=== PATIENT | male | born 1960 | race Caucasian/White ===

== ENCOUNTER 2021-02-13 11:47 | Inpatient (IN) | payer MEDICAID ==
[~2021-02-13] VITALS: Ht 185.4 cm; Wt 53.1 kg
[2021-02-13] MEDS ORDERED: InsuLIN REG 1unit/0.01ml Soln (100units/ml) IV ONE ×2 (12:00→14:45)
[2021-02-13] MEDS ORDERED: SODIUM CHLORIDE 0.9% 1,000 ML IV ONE ×3 (12:00→16:15)
[2021-02-13] MEDS ORDERED: cloNIDine HCL 0.1 MG TAB PO ONE (12:15)
[2021-02-13] MEDS ORDERED: ONDANSETRON HCL 4 MG/2 ML VIAL IV ONE (12:45)
[2021-02-13] MEDS ORDERED: MORPHINE SULFATE 4 MG/ML SYR/VIAL IV ONE (12:45)
[2021-02-13] MEDS ORDERED: LORazepam 2MG/ML-1ML VIAL ONE (13:10)
[2021-02-13] MEDS ORDERED: LORazepam 2MG/ML-1ML VIAL IV ONE (13:15)
[2021-02-13 13:31] LABS: Alanine Aminotransferase 253 U/L (16-61); Albumin 3.7 g/dL (3.4-5.0); Anion Gap 16 (5-15); Blood Urea Nitrogen 9 mg/dL (7-18); Calcium 8.8 mg/dL (8.5-10.1); Carbon Dioxide 25 mmol/L (21-32); Chloride 95 mmol/L (98-107); Lipase 253 U/L (73-393); Magnesium 2.1 mg/dL (1.6-2.6); Sodium 136 mmol/L (136-145)
[2021-02-13 13:36] LABS: Alkaline Phosphatase 134 U/L (45-117); Aspartate Aminotransferase 193 U/L (15-37); BUN/Creatinine Ratio 11.4; Bilirubin, Total 0.7 mg/dL (0.2-1.0); GFR African American 128 mL/min; GFR Non-African American 106 mL/min; Total Protein 7.6 g/dL (6.4-8.2)
[2021-02-13 13:38] LABS: Basophils # (auto) 0.1 10 ^3/uL (0-0.2); Basophils % (auto) 1.4 % (0.0-2.0); Eosinophils # (auto) 0.1 10 ^3/uL (0-0.8); Hematocrit 43.7 % (41.0-53.0); Hemoglobin 15.4 g/dL (13.5-17.5); Lymphocytes # (auto) 2.6 10 ^3/uL (0.4-5.4); Lymphocytes % (auto) 43.8 % (10.0-50.0); Mean Corpuscular Hemoglobin 31.2 pg (28.0-32.0); Mean Corpuscular Hgb Conc. 35.3 g/dL (32.0-36.0); Mean Corpuscular Volume 88.4 fL (80.0-100.0); Monocytes # (auto) 0.5 10 ^3/uL (0-1.3); Monocytes % (auto) 7.8 % (0.0-12.0); Neutrophils # (auto) 2.7 10 ^3/uL (1.6-8.6); Nucleated Red Blood Cells % 0.2 %; Platelet Count (auto) 231 10^3/uL (140-450); Red Blood Cells 4.94 10^6/uL (4.5-5.90); Red Cell Distribution Width 13.2 % (11.8-14.3); White Blood Cell 5.9 10^3/uL (4.4-10.8)
[2021-02-13 13:46] LABS: Glucose 422 mg/dL (74-106)
[2021-02-13] MEDS ORDERED: DEXTROSE (50%) 50ML SYRG IV PRN (16:00)
[2021-02-13] MEDS ORDERED: LORazepam 0.5 MG TAB PO PRN (16:00)
[2021-02-13] MEDS ORDERED: ONDANSETRON HCL 4 MG/2 ML VIAL IV PRN (16:00)
[2021-02-13] MEDS ORDERED: LOSARTAN POTASSIUM 50 MG TAB PO ONE (16:00)
[2021-02-13] MEDS ORDERED: MORPHINE SULF INJ 2 MG/ML SYRINGE 1ML IV PRN ×2 (16:00→22:15)
[2021-02-13] MEDS ORDERED: NITROGLYCERIN 0.4 MG SL TAB SL PRN (16:00)
[2021-02-13] MEDS ORDERED: DOCUSATE CALCIUM 240 MG CAP PO PRN (16:00)
[2021-02-13] MEDS ORDERED: ACETAMINOPHEN 325 MG TAB PO PRN (16:00)
[2021-02-13] MEDS ORDERED: IOHEXOL 300 MG/ML 100ML BOTTLE IJ ONE (16:13)
[2021-02-13] MEDS: ACCU-CHEK COMFORT CURVE STRIP VI SCH ×2 (16:46→20:00)
[2021-02-13] MEDS: InsuLIN REG 1unit/0.01ml Soln (100units/ml) SC SCH ×2 (16:47→21:10)
[2021-02-13 16:53] LABS: INR 1.07 (0.9-1.15); Partial Thromboplastin Time 24.7 sec (23.0-31.2)
[2021-02-13 17:20] LABS: Urine Bacteria FEW /hpf (None Seen); Urine Blood Negative /uL (Negative); Urine Specific Gravity 1.028 (1.001-1.035); Urine WBC 1 /hpf (0 - 3)
[2021-02-13] MEDS: SUCRALFATE 1 GM/10 ML ORAL SUSP PO SCH ×2 (18:19→21:14)
[2021-02-13] MEDS: SODIUM CHLORIDE 0.9% 1,000 ML IV SCH (18:54)
[2021-02-13] MEDS: INSULIN LANTUS (GLARGINE) 1 /0.01ml (100units/ml) SC SCH (21:10)
[2021-02-13] MEDS: GABAPENTIN 100 MG CAP PO SCH (21:14)
[2021-02-13] MEDS: PANTOPRAZOLE 40 MG TAB PO SCH (21:14)
[2021-02-13] MEDS: CLINDAMYCIN 300MG IV 50 ML IV SCH (21:25)
[2021-02-13 21:40] VITALS: BP 146/86
[2021-02-14] MEDS: SODIUM CHLORIDE 0.9% 1,000 ML IV SCH ×3 (00:15→16:15)
[2021-02-14] MEDS: InsuLIN REG 1unit/0.01ml Soln (100units/ml) SC SCH ×6 (00:55→20:39)
[2021-02-14] MEDS: MORPHINE SULF INJ 2 MG/ML SYRINGE 1ML IV PRN ×2 (02:54→07:07)
[2021-02-14] MEDS: ACCU-CHEK COMFORT CURVE STRIP VI SCH ×6 (04:00→20:00)
[2021-02-14 05:00] VITALS: BP 165/95
[2021-02-14] MEDS: CLINDAMYCIN 300MG IV 50 ML IV SCH ×3 (06:23→21:41)
[2021-02-14] MEDS: SUCRALFATE 1 GM/10 ML ORAL SUSP PO SCH ×4 (06:24→21:42)
[2021-02-14] MEDS ORDERED: HYDR-4902 PO (06:57)
[2021-02-14 07:51] LABS: Basophils # (auto) 0 10 ^3/uL (0-0.2); Eosinophils # (auto) 0 10 ^3/uL (0-0.8); Eosinophils % (auto) 0.7 % (0.0-7.0); Hematocrit 40.8 % (41.0-53.0); Hemoglobin 14.5 g/dL (13.5-17.5); Lymphocytes # (auto) 1.1 10 ^3/uL (0.4-5.4); Lymphocytes % (auto) 23.9 % (10.0-50.0); Mean Corpuscular Hemoglobin 31.3 pg (28.0-32.0); Mean Corpuscular Hgb Conc. 35.4 g/dL (32.0-36.0); Mean Corpuscular Volume 88.4 fL (80.0-100.0); Monocytes # (auto) 0.4 10 ^3/uL (0-1.3); Monocytes % (auto) 7.5 % (0.0-12.0); Neutrophils # (auto) 3.2 10 ^3/uL (1.6-8.6); Neutrophils % (auto) 66.9 % (37.0-80.0); Nucleated Red Blood Cells % 0.1 %; Platelet Count (auto) 149 10^3/uL (140-450); Red Blood Cells 4.62 10^6/uL (4.5-5.90); Red Cell Distribution Width 13.1 % (11.8-14.3); White Blood Cell 4.8 10^3/uL (4.4-10.8)
[2021-02-14 08:12] VITALS: BP 166/87
[2021-02-14 08:14] LABS: Calcium 8.2 mg/dL (8.5-10.1); Potassium 3.5 mmol/L (3.5-5.1)
[2021-02-14 08:20] LABS: Bilirubin, Total 0.6 mg/dL (0.2-1.0); Total Protein 6.2 g/dL (6.4-8.2)
[2021-02-14 08:28] LABS: INR 1.06 (0.9-1.15)
[2021-02-14] MEDS: PANTOPRAZOLE 40 MG TAB PO SCH ×2 (09:43→21:42)
[2021-02-14] MEDS: GABAPENTIN 100 MG CAP PO SCH ×2 (09:43→21:42)
[2021-02-14] MEDS: ENOXAPARIN SOD 40 MG/0.4 ML SYRINGE SC SCH (09:43)
[2021-02-14] MEDS: LABETALOL HCL 5 MG/ML 4ML SYRINGE IV PRN (09:44)
[2021-02-14] MEDS ORDERED: PANTOPRAZOLE 40 MG TAB PO SCH ×2 (10:00)
[2021-02-14] MEDS: HYDROmorphone HCL 2 MG/ML VL IV PRN ×3 (11:24→20:23)
[2021-02-14 12:30] VITALS: BP 138/79
[2021-02-14] MEDS ORDERED: chlordiazePOXIDE HCL 25 MG CAP PO PRN (15:30)
[2021-02-14 16:51] VITALS: BP 153/84
[2021-02-14] MEDS: Glucerna Carbsteady SHAKE Vanilla 8oz PO SCH (17:21)
[2021-02-14] MEDS: CEPHALEXIN 250 MG CAP PO SCH (17:21)
[2021-02-14] MEDS: FOLIC ACID 1 MG, MULTIPLE VITAMIN 10 ML, MAGNESIUM SULF SDV 50% 8 MEQ, THIAMINE INJ 100... INJ SCH ×5 (17:22)
[2021-02-14 21:42] VITALS: BP 131/72
[2021-02-14] MEDS: INSULIN LANTUS (GLARGINE) 1 /0.01ml (100units/ml) SC SCH (21:57)
[2021-02-15] MEDS: CEPHALEXIN 250 MG CAP PO SCH ×4 (00:24→17:16)
[2021-02-15] MEDS: ACCU-CHEK COMFORT CURVE STRIP VI SCH ×6 (00:24→20:13)
[2021-02-15] MEDS: SODIUM CHLORIDE 0.9% 1,000 ML IV SCH ×3 (00:25→16:02)
[2021-02-15] MEDS: HYDROmorphone HCL 2 MG/ML VL IV PRN ×6 (02:09→21:30)
[2021-02-15] MEDS: InsuLIN REG 1unit/0.01ml Soln (100units/ml) SC SCH ×7 (04:21→23:58)
[2021-02-15] MEDS: LABETALOL HCL 5 MG/ML 4ML SYRINGE IV PRN (04:22)
[2021-02-15 05:30] VITALS: BP 152/74
[2021-02-15 05:43] LABS: Basophils # (auto) 0 10 ^3/uL (0-0.2); Basophils % (auto) 0.9 % (0.0-2.0); Eosinophils # (auto) 0 10 ^3/uL (0-0.8); Eosinophils % (auto) 1.5 % (0.0-7.0); Hematocrit 39.6 % (41.0-53.0); Hemoglobin 13.8 g/dL (13.5-17.5); Lymphocytes # (auto) 0.7 10 ^3/uL (0.4-5.4); Lymphocytes % (auto) 23.6 % (10.0-50.0); Mean Corpuscular Hemoglobin 31.2 pg (28.0-32.0); Mean Corpuscular Hgb Conc. 34.9 g/dL (32.0-36.0); Mean Corpuscular Volume 89.5 fL (80.0-100.0); Monocytes # (auto) 0.2 10 ^3/uL (0-1.3); Monocytes % (auto) 7.9 % (0.0-12.0); Neutrophils % (auto) 66.1 % (37.0-80.0); Nucleated Red Blood Cells % 0.3 %; Platelet Count (auto) 108 10^3/uL (140-450); Red Blood Cells 4.42 10^6/uL (4.5-5.90); White Blood Cell 3.1 10^3/uL (4.4-10.8)
[2021-02-15 06:04] LABS: Albumin 3.1 g/dL (3.4-5.0); BUN/Creatinine Ratio 26.2; Calcium 8.1 mg/dL (8.5-10.1); INR 1.07 (0.9-1.15); Potassium 4.2 mmol/L (3.5-5.1)
[2021-02-15 06:07] LABS: Bilirubin, Total 0.7 mg/dL (0.2-1.0); Total Protein 6.1 g/dL (6.4-8.2)
[2021-02-15] MEDS: SUCRALFATE 1 GM/10 ML ORAL SUSP PO SCH ×4 (06:11→21:28)
[2021-02-15] MEDS: CLINDAMYCIN 300MG IV 50 ML IV SCH ×3 (06:11→21:28)
[2021-02-15] MEDS: Glucerna Carbsteady SHAKE Vanilla 8oz PO SCH ×3 (08:38→17:48)
[2021-02-15 09:00] VITALS: BP 141/79
[2021-02-15] MEDS: ENOXAPARIN SOD 40 MG/0.4 ML SYRINGE SC SCH (10:08)
[2021-02-15] MEDS: PANTOPRAZOLE 40 MG TAB PO SCH ×2 (10:08→21:29)
[2021-02-15] MEDS: GABAPENTIN 100 MG CAP PO SCH ×2 (10:08→21:29)
[2021-02-15 13:00] VITALS: BP 148/82
[2021-02-15 17:00] VITALS: BP 147/93
[2021-02-15] MEDS: FOLIC ACID 1 MG, MULTIPLE VITAMIN 10 ML, MAGNESIUM SULF SDV 50% 8 MEQ, THIAMINE INJ 100... INJ SCH ×5 (17:44)
[2021-02-15 21:31] VITALS: BP 130/74
[2021-02-15] MEDS: INSULIN LANTUS (GLARGINE) 1 /0.01ml (100units/ml) SC SCH (22:38)
[2021-02-16] MEDS: CEPHALEXIN 250 MG CAP PO SCH ×3 (00:02→12:12)
[2021-02-16] MEDS: ACCU-CHEK COMFORT CURVE STRIP VI SCH ×6 (00:12→21:02)
[2021-02-16] MEDS: SODIUM CHLORIDE 0.9% 1,000 ML IV SCH ×3 (00:15→15:35)
[2021-02-16] MEDS: HYDROmorphone HCL 2 MG/ML VL IV PRN ×7 (01:22→21:42)
[2021-02-16] MEDS: InsuLIN REG 1unit/0.01ml Soln (100units/ml) SC SCH ×5 (04:29→21:09)
[2021-02-16] MEDS: LABETALOL HCL 5 MG/ML 4ML SYRINGE IV PRN (04:30)
[2021-02-16 05:24] VITALS: BP 158/95
[2021-02-16] MEDS: CLINDAMYCIN 300MG IV 50 ML IV SCH ×2 (06:03→13:39)
[2021-02-16] MEDS: SUCRALFATE 1 GM/10 ML ORAL SUSP PO SCH ×4 (07:00→21:02)
[2021-02-16 08:01] VITALS: BP 131/95
[2021-02-16 08:06] VITALS: BP 131/71
[2021-02-16 08:24] LABS: Basophils # (auto) 0 10 ^3/uL (0-0.2); Basophils % (auto) 0.4 % (0.0-2.0); Eosinophils # (auto) 0.1 10 ^3/uL (0-0.8); Eosinophils % (auto) 2.2 % (0.0-7.0); Hematocrit 36.7 % (41.0-53.0); Hemoglobin 12.9 g/dL (13.5-17.5); Lymphocytes # (auto) 0.9 10 ^3/uL (0.4-5.4); Lymphocytes % (auto) 28.1 % (10.0-50.0); Mean Corpuscular Hemoglobin 31.7 pg (28.0-32.0); Mean Corpuscular Hgb Conc. 35.2 g/dL (32.0-36.0); Mean Corpuscular Volume 90.1 fL (80.0-100.0); Monocytes # (auto) 0.3 10 ^3/uL (0-1.3); Monocytes % (auto) 8.5 % (0.0-12.0); Neutrophils # (auto) 1.9 10 ^3/uL (1.6-8.6); Neutrophils % (auto) 60.8 % (37.0-80.0); Nucleated Red Blood Cells % 0.2 %; Platelet Count (auto) 98 10^3/uL (140-450); Red Blood Cells 4.08 10^6/uL (4.5-5.90); Red Cell Distribution Width 12.9 % (11.8-14.3); White Blood Cell 3.2 10^3/uL (4.4-10.8)
[2021-02-16 08:49] LABS: Potassium 4.2 mmol/L (3.5-5.1)
[2021-02-16] MEDS: Glucerna Carbsteady SHAKE Vanilla 8oz PO SCH ×3 (08:53→18:36)
[2021-02-16] MEDS: ENOXAPARIN SOD 40 MG/0.4 ML SYRINGE SC SCH (08:54)
[2021-02-16] MEDS: GABAPENTIN 100 MG CAP PO SCH ×2 (08:54→21:03)
[2021-02-16] MEDS: PANTOPRAZOLE 40 MG TAB PO SCH ×2 (08:54→21:03)
[2021-02-16 08:58] LABS: Albumin 2.8 g/dL (3.4-5.0); BUN/Creatinine Ratio 30.5; Bilirubin, Total 0.6 mg/dL (0.2-1.0); Total Protein 5.5 g/dL (6.4-8.2)
[2021-02-16 12:02] LABS: Hepatitis B Surface Antibody Negative
[2021-02-16 12:29] LABS: Hepatitis A Total Antibody Negative
[2021-02-16 12:30] VITALS: BP 134/73
[2021-02-16 15:00] LABS: Hepatitis B Core Total AB Negative; Hepatitis B Surface Antigen Negative (Negative)
[2021-02-16 15:14] LABS: Hepatitis C Antibody Positive (Negative)
[2021-02-16 16:54] VITALS: BP 140/74
[2021-02-16] MEDS: FOLIC ACID 1 MG, MULTIPLE VITAMIN 10 ML, MAGNESIUM SULF SDV 50% 8 MEQ, THIAMINE INJ 100... INJ SCH ×5 (18:36)
[2021-02-16] MEDS: CLINDAMYCIN HCL 150 MG CAP PO SCH (21:03)
[2021-02-16 22:00] VITALS: BP 162/93
[2021-02-16] MEDS ORDERED: INSULIN LANTUS (GLARGINE) 1 /0.01ml (100units/ml) SC SCH (22:00)
[2021-02-17] MEDS: SODIUM CHLORIDE 0.9% 1,000 ML IV SCH ×2 (00:15→08:15)
[2021-02-17] MEDS: InsuLIN REG 1unit/0.01ml Soln (100units/ml) SC SCH ×3 (01:01→08:25)
[2021-02-17] MEDS: ACCU-CHEK COMFORT CURVE STRIP VI SCH ×3 (01:02→08:22)
[2021-02-17] MEDS: HYDROmorphone HCL 2 MG/ML VL IV PRN ×3 (01:03→08:27)
[2021-02-17 05:00] VITALS: BP 166/98
[2021-02-17] MEDS: CLINDAMYCIN HCL 150 MG CAP PO SCH (06:00)
[2021-02-17] MEDS: SUCRALFATE 1 GM/10 ML ORAL SUSP PO SCH (06:02)
[2021-02-17 06:43] LABS: Basophils # (auto) 0 10 ^3/uL (0-0.2); Basophils % (auto) 0.7 % (0.0-2.0); Eosinophils # (auto) 0.1 10 ^3/uL (0-0.8); Hematocrit 41.6 % (41.0-53.0); Hemoglobin 14.8 g/dL (13.5-17.5); Lymphocytes # (auto) 0.9 10 ^3/uL (0.4-5.4); Lymphocytes % (auto) 23.9 % (10.0-50.0); Mean Corpuscular Hemoglobin 32.4 pg (28.0-32.0); Mean Corpuscular Hgb Conc. 35.5 g/dL (32.0-36.0); Mean Corpuscular Volume 91.4 fL (80.0-100.0); Monocytes # (auto) 0.3 10 ^3/uL (0-1.3); Monocytes % (auto) 8.9 % (0.0-12.0); Neutrophils # (auto) 2.3 10 ^3/uL (1.6-8.6); Neutrophils % (auto) 64.5 % (37.0-80.0); Nucleated Red Blood Cells % 0.9 %; Platelet Count (auto) 109 10^3/uL (140-450); Red Blood Cells 4.55 10^6/uL (4.5-5.90); Red Cell Distribution Width 13.1 % (11.8-14.3); White Blood Cell 3.6 10^3/uL (4.4-10.8)
[2021-02-17 06:54] LABS: INR 0.97 (0.9-1.15)
[2021-02-17 07:02] LABS: Calcium 8.5 mg/dL (8.5-10.1)
[2021-02-17] MEDS: Glucerna Carbsteady SHAKE Vanilla 8oz PO SCH (08:26)
[2021-02-17 09:00] VITALS: BP 152/81
== END 2021-02-17 10:00 | disposition left against medical advice (07) | DRG 420 ==
LOC: ER 11:47 → EDBD 11:47 → TELE-WESTW 15:53 → UNDOADMIN 15:53 → OVERFLOW 15:53 → TELE-WESTW 02-15 22:34
PROVIDERS: ADMIT Family Medicine; ATTEND Internal Medicine
DX: E11.00 Type 2 diabetes mellitus with hyperosmolarity without nonketotic hyperglycemic-hyperosmolar coma (NKHHC) (principal); F10.221 Alcohol dependence with intoxication delirium; E44.0 Moderate protein-calorie malnutrition; R65.10 Systemic inflammatory response syndrome (SIRS) of non-infectious origin without acute organ dysfunction; E11.40 Type 2 diabetes mellitus with diabetic neuropathy, unspecified; K70.30 Alcoholic cirrhosis of liver without ascites; E11.622 Type 2 diabetes mellitus with other skin ulcer; I16.0 Hypertensive urgency; I10 Essential (primary) hypertension; G89.29 Other chronic pain; K59.00 Constipation, unspecified; Z51.5 Encounter for palliative care; F10.239 Alcohol dependence with withdrawal, unspecified; Z20.822 Contact with and (suspected) exposure to COVID-19; I87.8 Other specified disorders of veins; Z91.14 Patient's other noncompliance with medication regimen; Z97.0 Presence of artificial eye; Y90.6 Blood alcohol level of 120-199 mg/100 ml; Z53.29 Procedure and treatment not carried out because of patient's decision for other reasons; I83.029 Varicose veins of left lower extremity with ulcer of unspecified site; E11.65 Type 2 diabetes mellitus with hyperglycemia
CPT/HCPCS: 36415; 36600; 71045; 74176; 74177; 80048; 80053; 80320; 81001; 82010; 82105; 82805; 82962; 83036; 83690; 83735; 84443; 84484; 85025; 85610; 85730; 86704; 86706; 86708; 86803; 87077; 87086; 87186; 87205; 87340; 87426; 93005; 96361; 96374; 96375; 96376; 99291; G0378; J1815; J2405; J3490